=== PATIENT | male | born 2000 | race African-American/Black ===

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

== ENCOUNTER 2021-07-22 09:10 | Emergency (ER) | payer OTHER ==
[~2021-07-22] VITALS: Ht 177.8 cm; Wt 94.2 kg
[2021-07-22 10:18] VITALS: BP 123/88
== END 2021-07-22 10:36 | disposition home or self-care (01) ==
LOC: M ED 09:10
DX: Z20.822 Contact with and (suspected) exposure to COVID-19 (principal); F17.200 Nicotine dependence, unspecified, uncomplicated
CPT/HCPCS: 99283; U0003